=== PATIENT | male | born 1960 | race African-American/Black ===

== ENCOUNTER 2018-02-02 03:35 | Emergency (ER) | payer MEDICAID ==
[~2018-02-02] VITALS: Ht 157.5 cm; Wt 51.0 kg
[2018-02-02 06:57] VITALS: BP 134/85
[2018-02-02 07:23] LABS: BASOPHILS % 0.7 % (0.0-2.0); EOSINOPHILS % 1.9 % (0.0-5.0); HEMATOCRIT. 44.7 % (42.0-52.0); HEMOGLOBIN. 15.7 g/dL (14.0-18.0); MEAN CORPUSCULAR HEMOGLOBIN 34.6 pg (28.0-32.0); MEAN CORPUSCULAR VOLUME 98.3 fL (80.0-94.0); MEAN PLATELET VOLUME 7.1 fl (7.4-10.4); NEUTROPHILS % 54.4 % (40.0-76.0); PLATELET 239 x1000/uL (130-400); RED BLOOD CELL COUNT 4.55 mill/uL (4.7-6.1); RED CELL DISTRIBUTION WIDTH 13.5 % (11.6-14.6)
[2018-02-02 07:28] LABS: PROTHROMBIN TIME 10.3 sec (9.4-11.6)
[2018-02-02 07:29] LABS: CHLORIDE 109 mEq/L (98-107)
== END 2018-02-02 08:19 | disposition home or self-care (01) ==
LOC: ER 03:35
DX: L03.115 Cellulitis of right lower limb (principal); G80.9 Cerebral palsy, unspecified; F17.200 Nicotine dependence, unspecified, uncomplicated; M41.9 Scoliosis, unspecified
CPT/HCPCS: 36415; 80048; 85025; 85610; 93971; 99285; Z7610